=== PATIENT | female | born 1965 | race Caucasian/White ===

== ENCOUNTER → 2023-12-15 17:27 | Outpatient (REF) | payer BC, SELFPAY | LOC: MRI 17:27 | PROVIDERS: ATTENDING PHYSICIAN Internal Medicine; FAMILY PHYSICIAN Physician Assistant Medical | DX: M76.01 Gluteal tendinitis, right hip (principal) | CPT/HCPCS: 73721 ==

== ENCOUNTER 2024-02-24 17:18 | Emergency (ER) | payer BC, SELFPAY ==
[2024-02-24 17:22] VITALS: BP 161/89
[2024-02-24 17:36] VITALS: BMI 27.0
--- NOTE | 2024-02-24 18:48 | ED.GENMED ---
History of Present Illness
General
Chief Complaint: Abnormal Lab Value
Source: patient
Exam Limitations: none
Time Seen by Provider: 02/24/24 18:10
Travel History
Have you had any contact with someone who has COVID-19?: No
Do you have any symptoms of coronavirus? Fever > 100 degrees, chills, cough, shortness of breath, sore throat, loss of taste or smell, muscle aches, or headache?: No
History of Present Illness
History of Present Illness:
See MDM
Past History
Past History
ED Past Medical History: HTN, Hypercholesterolemia, IDDM and Hypothyroidism
ED Past Surgical History: None
Social History
Tobacco: Non-smoker
Alcohol: Occasional
Drug: None
Living: with family
Employment: Employed
Phy Exam
Physical Exam
Physical Exam:
See MDM
Course
Orders/Labs/Results
Orders:
Orders
02/24/24 18:46
Prednisone [Deltasone] 20 mg PO NOW STA
Vital Signs
Initial and Last Documented VS:
Initial Vital Signs
Temp Pulse Resp BP Pulse Ox
99.1 F 95 19 161/89 99
02/24/24 17:22 02/24/24 17:22 02/24/24 17:22 02/24/24 17:22 02/24/24 17:22
Last Documented Vital Signs
Temp Pulse Resp BP Pulse Ox
99.1 F 95 19 161/89 99
02/24/24 17:22 02/24/24 17:22 02/24/24 17:22 02/24/24 17:22 02/24/24 17:22
MDM/Problems Addressed
Differential Diagnosis Includes:
HPI and MDM Narrative:
59-year-old female presenting for evaluation of elevated CRP. She has known giant cell arteritis. She has been treated with prednisone taper over the past year. She follows with rheumatology Dr. Lowry. Patient states she has a mild headache mild
hearing loss. She receives monthly Actemra shots and is due for her monthly shot and rheumatology appointment tomorrow at 10 AM. Patient receives routine blood work before her infusion. The office called the patient to discuss the blood work and
patient has a CRP of 70. Given her symptoms, she was told to go to the ER for evaluation. Patient denies any visual complaints.
Physical exam
General: Well appearing and non-toxic
HEENT: protecting airway. Pupils equal reactive. No temporal pain
Neck: appears supple
CV: No evidence of cyanosis
Resp: No accessory muscle use
Abd: Non-distended
Extremities: No deformities
Neuro: alert
Psych: Normal affect
Skin: Intact
Problems Addressed including Acute and Chronic Conditions affecting care:
1. Temporal arteritis
Acuity: chronic
Prognosis: stable
Details: Outpatient blood work shows increasing CRP. Patient currently on 4 mg of prednisone daily
Updates
I had long discussion with rheumatology on-call Dr. Kaila Moody. We discussed the uptrending CRP and we discussed her physical exam. We discussed the patient denies any visual complaints. Given how well she is and given that she already has the
diagnosis, we discussed discharging home. It was suggested that she take 15 to 20 mg of prednisone at home. I will provide that dose before she leaves. Patient has appointment at 10 AM tomorrow with her retail pharmacist and she has her Actemra
infusion. Discussed that she can call the on-call retail pharmacist or return to the emergency department at any time if she feels uncomfortable. At the moment, patient was comfortable going
Differential Diagnosis (but not limited to):
Testing considered:
Drug therapy (if applicable): OTC meds, please see d/c instruction regarding Rx drugs
Amount and/or Complexity of Data Reviewed
Clinical info obtained from: Patient
External data reviewed: Currently being treated in the past year for giant cell arteritis and currently on 4 mg of prednisone daily
Labs I independently reviewed (but not limited to): N/A
Radiology: N/A
Pulse Ox: not hypoxic
EKG independently reviewed: N/A
Head Orthopedic Team Physician: N/A
Critical Care: N/A
Risk of Complication:
Social Determinants of health: Good social support
Discussed with other providers: Community Relations Assistant
Escalation of Care includes Admit/Obs: After being observed in the Emergency Department, pt stable for discharge.
Occasional wrong word or 'sound a like' substitutions may have occurred due to the inherent limitations of voice recognition software. Read the chart carefully and recognize, using context, where substitutions have occurred.
*Critical Care Note
Total Time (30-74mins, 75-104mins- exclusive of procedures): Not Applicable
ED Attending Note
-
Portions of this chart may have been created with voice recognition software.� Occasional wrong word or��sound alike� substitutions may have occurred due to the inherent limitations of voice recognition software.
Discharge Plan
Departure
Patient Disposition: Home (Routine Discharge)
Date of Disposition: 02/24/24
Time of Disposition: 19:01
Patient with high blood pressure during this ER visit?: Yes
Discharge Problem:
Giant cell arteritis
Prescriptions:
No Action
insulin glargine [Lantus U-100 Insulin] 100 unit/mL Solution
34 unit SC HS
atorvastatin 10 mg tablet
10 mg PO HS
Patient Comments:
02/24/2024: Pt swears she is taking 10mg, pharmacy filled 20mg on 01/26/24 & 02/23/24. Pt will have family check what strength.
levothyroxine 75 mcg tablet
75 mcg PO DAILY AT 0700
insulin aspart U-100 [Novolog U-100 Insulin aspart] 100 unit/mL solution
0 sliding scale dose SC MEALS
lisinopril 2.5 mg Tablet
2.5 mg PO HS
duloxetine 20 mg Capsule,Delayed Release(/Ec)
20 mg PO HS
prednisone 1 mg tablet
4 mg PO HS
Patient Comments:
02/24/2024: 'Take 4mg by oral route every day. wean by 1 mg every month'
Referrals:
Samantha Hsu PA-C [Family Provider] -
Activity Restrictions/Additional Instructions:
Please return for any worsening symptoms.
You may return at any time if you have further concerns.
You received an extra 20 mg of prednisone today. The on-call retail pharmacist Dr. Kaila Moody is aware you were here today. If you need to speak to her tonight, you can call the on-call number. Make sure you keep your appointment tomorrow.
Thank you for choosing [facility].
Interventions
Interventions:
*Risk Screen - Suicide Last Done: 02/24/24 17:36
*General Assessment Last Done: 02/24/24 17:23
*Neglect/Abuse Screening Last Done: 02/24/24 17:36
ED- Fall Risk Assessment Last Done: 02/24/24 17:36
*ED COVID-19 Vaccine History Last Done: 02/24/24 17:22
Discharge Date and Time
Print Language: MONGOLIAN
[2024-02-24] MEDS: DELTASONE 20 MG PO (19:15)
== END 2024-02-24 19:36 | disposition home or self-care (01) ==
LOC: EMR 17:18
PROVIDERS: EMERGENCY PHYSICIAN Student in an Organized Health Care Education/Training Program; FAMILY PHYSICIAN Physician Assistant Medical
DX: M31.6 Other giant cell arteritis (principal); I10 Essential (primary) hypertension
CPT/HCPCS: 99283

== ENCOUNTER 2024-07-15 21:29 | Emergency (ER) | payer BC, SELFPAY ==
[2024-07-15 21:30] VITALS: BP 122/91
[2024-07-15 21:46] LABS: Urine Albumin 1+ (Neg - Trace); Urine Bilirubin Negative (Negative); Urine Character Slightly Cloudy (Clear); Urine Glucose Negative (Negative); Urine Ketone Negative (Negative); Urine Leukocyte 2+ (Negative); Urine Nitrite Negative (Negative); Urine Occult Blood 4+ (Negative); Urine Urobilinogen Negative (Neg - 1+)
[2024-07-15 21:47] LABS: Urine Color Pink
[2024-07-15 22:07] LABS: Urine Bacteria Few (Negative); Urine Squamous Cell 0-2 /LPF (Few)
[2024-07-15 22:08] LABS: Urine Red Blood Cell 0-2 /HPF (0-2); Urine White Cell 50-60 /HPF (0-5)
[2024-07-15 22:14] VITALS: BMI 28.3
[2024-07-15 22:16] LABS: % Basophils 0.4 % (0-2); % Eosinophils 0.5 % (0-6); % Immature Granulocytes 0.1 % (0-0.5); % Lymphocytes 24.6 % (20.5-51.1); % Monocytes 10.2 % (1.7-9.3); % Neutrophils 64.2 % (42.2-75.2); Absolute Lymphocytes 1.8 10^3/uL (1.2-3.4); Absolute Monocytes 0.8 10^3/uL (0.1-0.6); Absolute Neutrophils 4.8 10^3/uL (1.4-6.5); Hemoglobin 14.4 g/dL (12.0-16.0); Mean Corp Hgb Conc. 34.3 g/dL (33.0-37.0); Mean Corpuscular Hgb 31.6 pg (27.0-31.0); Mean Corpuscular Volume 92.1 fL (81.0-99.0); Mean Platelet Volume 9.3 fL (7.4-10.4); Nucleated Red Blood Cells % 0 %; Platelet Count 268 10^3/uL (130-400); Red Blood Cell Count 4.56 10^6/uL (4.20-5.40); Red Cell Dist. Width 12.7 % (11.5-14.5); White Blood Cell Count 7.5 10^3/uL (4.8-10.8)
[2024-07-15 22:29] LABS: ALT (SGPT) 20 U/L (0-35); AST (SGOT) 20 U/L (14-36); Albumin 4.2 g/dl (3.5-5.0); Alkaline Phosphatase 84 U/L (38-126); Blood Urea Nitrogen 19 mg/dl (7-17); Carbon Dioxide 27 mmol/L (22-30); Chloride 103 mmol/L (98-107); Estimated Creatinine Clearance 87 ml/min; Glucose 168 mg/dl (70-99); Potassium 4.3 mmol/L (3.5-5.1); Sodium 138 mmol/L (135-145); Total Bilirubin 0.8 mg/dl (0.2-1.3); Total Protein 6.8 g/dl (6.3-8.2); eGFR > 60.00
--- NOTE | 2024-07-15 22:34 | ED.GENMED ---
History of Present Illness
General
Chief Complaint: Urinary Symptoms
Source: patient
Exam Limitations: none
Time Seen by Provider: 07/15/24 22:27
History of Present Illness
History of Present Illness:
See MDM
Past History
Past History
ED Past Medical History: HTN, Hypercholesterolemia, IDDM and Hypothyroidism
ED Past Surgical History: None
Social History
Tobacco: Non-smoker
Alcohol: Occasional
Drug: None
Living: with family
Employment: Employed
Phy Exam
Physical Exam
Physical Exam:
See MDM
Course
Orders/Labs/Results
Orders:
Orders
07/15/24 21:39
Urinalysis Reflex To Culture Urgent
Date Specimen was Collected: 07/15/24
Time Specimen was Collected: 21:35
Urine Microscopic Reflex Cult Urgent
Urine Culture Urgent
SARITA Source: U
Specimen Description:
Date Specimen was Collected: 07/15/24
Time Specimen was Collected: 21:35
07/15/24 22:09
CMP [Comprehensive Metabolic Panel] Urgent
Complete Blood Count/With Diff Urgent
07/15/24 22:32
Cephalexin Monohydrate [Keflex] 500 mg PO NOW STA
Oxycodone/Acetaminophen [Percocet 5/325] 1 tablet PO NOW STA
Phenazopyridine HCl [Pyridium] 100 mg PO NOW STA
07/15/24 23:25
Phenazopyridine HCl [Pyridium] 100 mg PO NOW STA
Abnormal Lab Results
07/15/24 07/15/24
21:39 22:09
MCH 31.6 H pg
(27.0-31.0)
Absolute Monos (auto) 0.8 H 10^3/uL
(0.1-0.6)
Monocytes % 10.2 H %
(1.7-9.3)
BUN 19 H mg/dl
(7-17)
Glucose 168 H mg/dl
(70-99)
Ur Occult Blood Reflex 4+ A
(Negative)
Leukocyte Esterase Rfl 2+ A
(Negative)
Urine WBC (Reflex) 50-60 A /HPF
(0-5)
Urine Bacteria (Reflex) Few A
(Negative)
Urine Albumin (Reflex) 1+ A
(Neg - Trace)
07/15/24 22:09
07/15/24 22:09
Vital Signs
Initial and Last Documented VS:
Initial Vital Signs
Temp Pulse Resp BP Pulse Ox
97.5 F 73 18 122/91 98
07/15/24 21:30 07/15/24 21:30 07/15/24 21:30 07/15/24 21:30 07/15/24 21:30
Last Documented Vital Signs
Temp Pulse Resp BP Pulse Ox
97.5 F 73 18 122/91 98
07/15/24 21:30 07/15/24 21:30 07/15/24 21:30 07/15/24 21:30 07/15/24 21:30
MDM/Problems Addressed
Differential Diagnosis Includes:
HPI and MDM Narrative:
59-year-old female presenting with lower abdominal discomfort, pain with urination and hematuria. Patient was worried she could have UTI in the setting of being immunocompromise. She denies fevers.
On exam, she is pacing in the room. There is no abdominal tenderness on my exam. We discussed concern for hemorrhagic cystitis. She cannot take NSAIDs due to steroid use. Will start antibiotics and Pyridium
Physical exam
General: Mildly uncomfortable, pacing around the room
HEENT: protecting airway
Neck: appears supple
CV: No evidence of cyanosis
Resp: No accessory muscle use
Abd: Non-distended. No abdominal tenderness noted
Extremities: No deformities
Neuro: alert
Psych: Normal affect
Skin: Intact
Problems Addressed including Acute and Chronic Conditions affecting care:
1. Hemorrhagic cystitis
Acuity: acute
Prognosis: stable
Details: Will start Pyridium and Keflex
Updates
On reassessment after Pyridium, patient feeling better
Differential Diagnosis (but not limited to): Bladder stone, hemorrhagic cystitis, pyelonephritis
Testing considered: CT abdomen/pelvis
Drug therapy (if applicable): OTC meds, please see d/c instruction regarding Rx drugs
Amount and/or Complexity of Data Reviewed
Clinical info obtained from: Patient
External data reviewed: History of temporal arteritis currently on steroid
Labs I independently reviewed (but not limited to): Hyperglycemia. Patient aware
Radiology: N/A
Pulse Ox: not hypoxic
EKG independently reviewed: N/A
Range Feeder: N/A
Critical Care: N/A
Risk of Complication:
Social Determinants of health: Good social support
Discussed with other providers: N/A
Escalation of Care includes Admit/Obs: After being observed in the Emergency Department, pt stable for discharge.
Occasional wrong word or 'sound a like' substitutions may have occurred due to the inherent limitations of voice recognition software. Read the chart carefully and recognize, using context, where substitutions have occurred.
*Critical Care Note
Total Time (30-74mins, 75-104mins- exclusive of procedures): Not Applicable
ED Attending Note
-
Portions of this chart may have been created with voice recognition software.� Occasional wrong word or��sound alike� substitutions may have occurred due to the inherent limitations of voice recognition software.
Discharge Plan
Departure
Patient Disposition: Home (Routine Discharge)
Date of Disposition: 07/15/24
Time of Disposition: 23:25
Patient with high blood pressure during this ER visit?: No
Discharge Problem:
Acute hemorrhagic cystitis
Instructions: Urinary Tract Infection, Adult (DC)
Prescriptions:
New
cephalexin 500 mg capsule
500 mg PO BID 7 Days Qty: 14 0RF
phenazopyridine [Pyridium] 100 mg tablet
100 mg PO TID PRN (Reason: Pain) Qty: 6 0RF
No Action
insulin glargine [Lantus U-100 Insulin] 100 unit/mL Solution
30 unit SC HS
atorvastatin 10 mg tablet
20 mg PO HS
Patient Comments:
02/24/2024: Pt swears she is taking 10mg, pharmacy filled 20mg on 01/26/24 & 02/23/24. Pt will have family check what strength.
levothyroxine 75 mcg tablet
75 mcg PO DAILY AT 0700
insulin aspart U-100 [Novolog U-100 Insulin aspart] 100 unit/mL solution
0 sliding scale dose SC MEALS
lisinopril 2.5 mg Tablet
2.5 mg PO HS
duloxetine 20 mg Capsule,Delayed Release(Dr/Ec)
20 mg PO HS
prednisone 1 mg tablet
7 mg PO HS
Patient Comments:
02/24/2024: 'Take 4mg by oral route every day. wean by 1 mg every month'
Referrals:
UNKNOWN - PT NOT,INTERVIEWE [Unknown Provider] -
Activity Restrictions/Additional Instructions:
Please return for any worsening symptoms.
You may return at any time if you have further concerns.
Please follow up with your doctor at the first available appointment, preferably this week.
Interventions
Interventions:
*Risk Screen - Suicide Last Done: 07/15/24 21:30
*General Assessment Last Done: 07/15/24 21:30
*Neglect/Abuse Screening Last Done: 07/15/24 21:30
ED- Fall Risk Assessment Last Done: 07/15/24 22:01
*ED COVID-19 Vaccine History Last Done: 07/15/24 22:01
ED-Female Genitourinary Assessment Last Done: 07/15/24 22:15
Discharge Date and Time
Print Language: GREENLANDIC
[2024-07-15] MEDS: PERCOCET 5/325 1 TABLET PO (22:37)
[2024-07-15] MEDS: Pyridium 100 MG PO ×2 (22:37→23:33)
[2024-07-15] MEDS: KEFLEX 500 MG PO (22:38)
== END 2024-07-15 23:39 | disposition home or self-care (01) ==
LOC: EMR 21:29
PROVIDERS: Emergency Medicine; EMERGENCY PHYSICIAN Student in an Organized Health Care Education/Training Program
DX: R10.9 Unspecified abdominal pain (principal); N30.01 Acute cystitis with hematuria; I10 Essential (primary) hypertension; E78.00 Pure hypercholesterolemia, unspecified; E03.9 Hypothyroidism, unspecified; M31.6 Other giant cell arteritis; E11.9 Type 2 diabetes mellitus without complications; Z79.4 Long term (current) use of insulin; Z88.1 Allergy status to other antibiotic agents; Z88.2 Allergy status to sulfonamides; Z88.8 Allergy status to other drugs, medicaments and biological substances
CPT/HCPCS: 99283; 80053; 81003; 81015; 85025; 87071; 87086; 87186

== ENCOUNTER → 2025-04-25 10:58 | Outpatient (REF) | payer BC, SELFPAY | LOC: HWRAD 10:58 | PROVIDERS: ATTENDING PHYSICIAN Internal Medicine Endocrinology, Diabetes & Metabolism; FAMILY PHYSICIAN Family Medicine | DX: E04.0 Nontoxic diffuse goiter (principal) | CPT/HCPCS: 76536 ==

== ENCOUNTER → 2025-05-14 13:14 | Outpatient (REF) | payer BC, SELFPAY | LOC: RAD 13:14 | PROVIDERS: ATTENDING PHYSICIAN Specialist; FAMILY PHYSICIAN Family Medicine; REFERRING PHYSICIAN Internal Medicine Cardiovascular Disease | DX: R31.0 Gross hematuria (principal); I71.20 Thoracic aortic aneurysm, without rupture, unspecified | CPT/HCPCS: 71250; 74178; Q9967 ==